=== PATIENT | male | born 1955 | race Caucasian/White ===

== ENCOUNTER 2025-07-07 08:25 | Emergency (ER) | payer MEDICARE, BC, SELFPAY ==
[2025-07-07 08:37] VITALS: BP 148/103
--- NOTE | 2025-07-07 09:24 | ED.GENMED ---
History of Present Illness
<Katya Albarado MD, Resident - Last Filed: 07/07/25 11:08>
General
Chief Complaint: Musculo-Skeletal Complaint
Source: patient and significant other
Exam Limitations: none
Time Seen by Provider: 07/07/25 09:11
Nursing documentation reviewed up to this point in time: agreed with
History of Present Illness
History of Present Illness:
70yo M with a hx of bilateral LE lymphedema who presents with subacute L ankle/LLE pain & paresthesia.
Pt was helping with moving boxes 1 week ago, with no trauma/fall/twisting of L ankle. The next day, he began experiencing severe pain in the L ankle, laterally & posteriorly. Tried using heat and ice and motrin for a few days, with minimal relief.
Went to urgent care 3 days ago, where he was prescribed a course of prednisone and radiographs of the L ankle were read without evidence of fracture. Pt was given crutches and told to present to ED today if pain had not resolved. Pain has continued
to worsen, with extension from lateral/posterior ankle up through posterior calf and hamstring. Pt also endorses L buttocks/hip pain and some pain in the R hip crease, new in the last 1-2 days. States that he is unable to ambulate due to
excruciating pain. Heat and elevating the foot improve the pain. Pt endorses tingling/paresthesia in LLE. Also endorses sensation of muscular weakness in the L ankle. Denies any swelling, warmth, or erythema of L ankle; denies any f/c.
Past History
<Katya Albarado MD, Resident - Last Filed: 07/07/25 11:08>
Past History
ED Past Medical History: Other (lymphedema)
Social History
Personal:
Living: with family
Review of Systems
<Katya Albarado MD, Resident - Last Filed: 07/07/25 11:08>
Review of Systems
All Other Systems: ROS reviewed and negative except as documented in HPI and ROS
Constitutional: Reports no symptoms
EENT: Reports no symptoms
Respiratory: Reports no symptoms
Cardiac: Reports no symptoms
ABD/GI: Reports no symptoms
: Reports no symptoms
Musculoskeletal: Reports joint pain (L ankle) and muscle pain (L calf, hamstring, buttocks; R hip crease )
Neurological: Reports no symptoms
Psychiatric: Reports no symptoms
Phy Exam
<Katya Albarado MD, Resident - Last Filed: 07/07/25 11:08>
General Physical Exam
General Presentation: mild distress
General age: appears stated age
General Skin: warm and dry
General Habitus: normal
General Mental: alert
Cardiovascular Exam
Cardiovascular Exam: regular rate/rhythm and no edema
Pulmonary Exam
Pulmonary Exam: lungs clear and no respiratory distress
Gastrointestinal Exam
Gastrointestinal Exam: non distended
Neurological Exam
Neurological Exam: alert and other (ankle flexion & extension strength full & bilateral; sensation normal on LLE )
Musculoskeletal Exam
Musculoskeletal Exam: no edema (mild lymphedema; no swelling, erythema, or warmth over L foot/ankle) and other (burning, tingling pain over L posterior hip/upper hamstring with straight leg raise; tenderness to palpation on L calf, no tenderness to
palpation along L ankle joint )
Skin Exam
Skin Exam: normal color
Psychiatric Exam
Psychiatric Exam: normal mood/affect
Course
<Katya Albarado MD, Resident - Last Filed: 07/07/25 11:08>
Orders/Labs/Results
Orders:
Orders
07/07/25 10:08
Hydrocodone 5/APAP 325 [[place] 5/325] 2 tablet PO NOW STA
Venous Doppler Lwr Ext Left [US Periph Venous LOWER Ext LT] Urgent
Comment:
Reason For Exam: pain, recent travel
07/07/25 10:57
Ortho Boot Left- Treatment ONCE
Short or tall?: Tall
Vital Signs
Initial and Last Documented VS:
Initial Vital Signs
Pulse Resp BP Pulse Ox
66 18 148/103 97
07/07/25 08:37 07/07/25 08:37 07/07/25 08:37 07/07/25 08:37
Last Documented Vital Signs
Pulse Resp BP Pulse Ox
66 18 148/103 97
07/07/25 08:37 07/07/25 08:37 07/07/25 08:37 07/07/25 09:29
<Justin Blackman DO - Last Filed: 07/07/25 10:13>
Orders/Labs/Results
Orders:
Orders
07/07/25 10:08
Hydrocodone 5/APAP 325 [[place] 5/325] 2 tablet PO NOW STA
Venous Doppler Lwr Ext Left [US Periph Venous LOWER Ext LT] Urgent
Comment:
Reason For Exam: pain, recent travel
07/07/25 10:57
Ortho Boot Left- Treatment ONCE
Short or tall?: Tall
Vital Signs
Initial and Last Documented VS:
Initial Vital Signs
Pulse Resp BP Pulse Ox
66 18 148/103 97
07/07/25 08:37 07/07/25 08:37 07/07/25 08:37 07/07/25 08:37
Last Documented Vital Signs
Pulse Resp BP Pulse Ox
66 18 148/103 97
07/07/25 08:37 07/07/25 08:37 07/07/25 08:37 07/07/25 09:29
<Katya Albarado MD, Resident - Last Filed: 07/07/25 11:08>
MDM/Problems Addressed
Differential Diagnosis Includes:
Likely nerve impingement in s/o of bending/lifting boxes, c/w his paresthesias, burning quality of pain and lack of tenderness to palpation over ankle on exam
Sciatica
Less likely:
Muscular strain/sprain
Fracture not visualized on radiograph (reviewed urgent care disc in ED)
No sx c/w septic joint or infectious process
MDM/Problems Addressed:
- Analgesics in ED
- US LLE to r/o DVT
- Refer for outpatient f/u with ortho for further w/u
<Katya Albarado MD, Resident - Last Filed: 07/07/25 11:08>
*Pulse Oximetry
SaO2: 97
Oxygen Mode of Delivery: Room air
Patient hypoxic: no
*Critical Care Note
Total Time (30-74mins, 75-104mins- exclusive of procedures): Not Applicable
<Katya Albarado MD, Resident - Last Filed: 07/07/25 11:08>
Update Note
Update Note:
10:54am
LLE US negative for DVT
Will plan to discharge pt with boot, extended prednisone taper, ortho referral, and pain medication
ED Attending Note
<Katya Albarado MD, Resident - Last Filed: 07/07/25 11:08>
-
Portions of this chart may have been created with voice recognition software.� Occasional wrong word or��sound alike� substitutions may have occurred due to the inherent limitations of voice recognition software.
<Justin Blackman DO - Last Filed: 07/07/25 10:13>
ED Attending Note
Patient seen and examined by attending physician: Yes
I performed a history and physical exam of patient and discussed management with resident, I reviewed resident's note and agree with documented findings and plan of care.: Yes
ED Attending Note:
70-year-old male presents with pain in the posterior aspect of his distal left lower extremity. Patient states that he was moving from [place] and was lifting boxes. States that the pain has been persistent. Was seen at urgent care and had an
x-ray. X-rays reviewed by me and are normal. Patient does admit that he has a history of lymphedema. Denies chest pain or shortness of breath. No fevers. Lymphedema is from 3 prior knee replacement surgeries. Exam: No swelling. Ankle is
without edema or redness or warmth. Foot is warm and well-perfused. Does have some tenderness noted to the posterior aspect of his left distal fibula between the Achilles and the fibula. No rash. No palpable cords. Assessment and plan: No
clinical suspicion for septic joint or arthritis of any kind. No clinical suspicion for gout. Plan to check DVT study in light of his recent drive from [facility]. Question whether this is a soft tissue injury and likely if ultrasound
negative will treat with orthotic boot and outpatient orthopedic follow
Discharge Plan
Departure
Patient Disposition: Home (Routine Discharge)
Date of Disposition: 07/07/25
Time of Disposition: 10:55
Patient with high blood pressure during this ER visit?: Yes
Condition: Fair
Covid-19: Not Applicable
Discharge Problem:
Left ankle strain
Prescriptions:
New
prednisone 20 mg tablet
20 mg PO DIRECTED Qty: 7 0RF
prednisone 10 mg tablet
10 mg PO DIRECTED Qty: 4 0RF
prednisone 5 mg tablet
5 mg PO DIRECTED Qty: 4 0RF
Referrals:
NONE,* [Family Provider, Internal Medicine]
Celio Montana MD [Active, Orthopedics] - Follow up in 5-7 days
Referral Note: LLE pain
Activity Restrictions/Additional Instructions:
Stop taking the previous prednisone taper from urgent care and start a new prednisone taper (we have sent a prescription) according to this 10-day taper schedule:
30mg>30mg>25mg>25mg>25mg>20mg>20mg>10mg>10mg>5mg
We have provided a referral for an orthopedic doctor, who can see you for additional workup and management of your pain. Please wear the tall ortho boot until then. We have also prescribed you some pain medications that you may take as needed (per
the instructions on the prescription) for pain. You may also take NSAID medications like aleve, advil, or motrin as needed for pain.
Return to the ED if you have worsening redness, warmth, or swelling of the L foot, or if you develop worsening weakness or numbness in the leg or incontinence.
Interventions
Interventions:
*Risk Screen - Suicide Last Done: 07/07/25 08:42
*General Assessment Last Done: 07/07/25 08:37
*Neglect/Abuse Screening Last Done: 07/07/25 08:37
ED-Musculoskeletal Assessment Last Done: 07/07/25 10:20
Discharge Date and Time
Print Language: YAKUT
[2025-07-07] MEDS: NORCO 5/325 2 TABLET PO (10:14)
== END 2025-07-07 11:31 | disposition home or self-care (01) ==
LOC: EMR 08:25
PROVIDERS: EMERGENCY PHYSICIAN Emergency Medicine
DX: S96.912A Strain of unspecified muscle and tendon at ankle and foot level, left foot, initial encounter (principal); X50.0XXA Overexertion from strenuous movement or load, initial encounter; R03.0 Elevated blood-pressure reading, without diagnosis of hypertension; I89.0 Lymphedema, not elsewhere classified; Z96.659 Presence of unspecified artificial knee joint
CPT/HCPCS: 99284; 93971